=== PATIENT | female | born 1975 | race Caucasian/White ===

== ENCOUNTER 2018-02-24 05:35 | Inpatient (IN) | payer OTHER ==
[2018-02-23 11:08] LABS: BILIRUBIN,URINE NEGATIVE (NEGATIVE); BLOOD, URINE NEGATIVE (NEGATIVE); CLARITY/URINE CLEAR (CLEAR); COLOR,URINE YELLOW (YELLOW); GLUCOSE,URINE NEGATIVE (NEGATIVE); KETONES,URINE NEGATIVE (NEGATIVE); LEUKOCYTE ESTERASE ,URINE NEGATIVE (NEGATIVE); NITRITE, URINE NEGATIVE (NEGATIVE); PROTEIN URINE NEGATIVE (NEGATIVE); UROBILINOGEN,URINE 0.2 (0.2-1.0)
[2018-02-23 11:12] LABS: BASOPHILS % (AUTO) 0.3 % (0.0-2.0); EOSINOPHILS # (AUTO) 0.1 K/uL (0.0-0.4); HEMATOCRIT 40.5 % (36-48); HEMOGLOBIN 13.6 g/dL (12.0-16.0); LYMPHOCYTES # (AUTO) 1.8 K/uL (1.0-5.5); LYMPHOCYTES % (AUTO) 22.1 % (20.5-51.5); MEAN CORPUSCULAR HEMOGLOBIN 28 pg (27-31); MEAN CORPUSCULAR HGB CONC 34 % (32-36); MEAN CORPUSCULAR VOLUME 83 fL (79.0-98.0); MONOCYTES # (AUTO) 0.4 K/uL (0.0-1.0); MONOCYTES % (AUTO) 4.6 % (1.7-9.3); NEUTROPHILS # (AUTO) 5.9 K/uL (1.8-7.7); PLATELET COUNT (AUTO) 326 K/uL (130-430); RED CELL DISTRIBUTION WIDTH 12.5 % (9.0-15.0); WHITE BLOOD COUNT (AUTO) 8.3 K/uL (4.8-10.8)
[2018-02-23 11:30] LABS: ALBUMIN 3.4 g/dL (3.4-4.8); CALCIUM 8.7 mg/dL (8.4-11.0); CREATININE 0.62 mg/dL (0.55-1.30); POTASSIUM 4.1 mmol/L (3.5-5.1); TOTAL BILIRUBIN 0.4 mg/dL (0.0-1.0)
[~2018-02-24] VITALS: Ht 157.5 cm; Wt 66.2 kg
[2018-02-24] MEDS ORDERED: CEFAZOLIN 1 GM IVPB PREMIX 50 ML IV ONE ×2 (06:22→07:00)
[2018-02-24] MEDS ORDERED: ONDANSETRON HCL 4 MG/2 ML VIAL IVP PRN ×2 (08:15→10:45)
[2018-02-24] MEDS ORDERED: KETOROLAC TROMETHAMINE 30 MG VIAL IVP PRN (08:15)
[2018-02-24] MEDS ORDERED: fentaNYL CITRATE/PF 100 MCG/2 ML AMP IVP PRN ×2 (08:15)
[2018-02-24] MEDS ORDERED: GLYCOPYRROLATE 0.2 MG/ML VIAL IJ ONE (10:35)
[2018-02-24] MEDS ORDERED: NEOSTIGMINE METHYLSULFATE 1 MG/ML, 10 ML VIAL IVP ONE (10:35)
[2018-02-24] MEDS ORDERED: PROPOFOL 200MG/ 20ML VIAL (DIPRIVAN) IV ONE (10:35)
[2018-02-24] MEDS ORDERED: MIDAZOLAM HCL 5 MG/ML VIAL (VERSED) IV ONE (10:35)
[2018-02-24] MEDS ORDERED: KETOROLAC TROMETHAMINE 30 MG VIAL IVP ONE (10:35)
[2018-02-24] MEDS ORDERED: VASOPRESSIN 20 UNITS/ML VIAL IV ONE (10:35)
[2018-02-24] MEDS ORDERED: BUPIVACAINE /PF 0.25% 30 ML VIAL INJ ONE (10:35)
[2018-02-24] MEDS ORDERED: LR 1,000 ML IV.SOLN IV ONE (10:35)
[2018-02-24] MEDS ORDERED: LIDOCAINE 1% 10 MG/ML, 20 ML MDV INJ ONE (10:35)
[2018-02-24] MEDS ORDERED: NS 100 ML BAG IV ONE (10:35)
[2018-02-24] MEDS ORDERED: SEVOFLURANE 15 MIN GAS INH ONE (10:35)
[2018-02-24] MEDS ORDERED: ONDANSETRON HCL 4 MG/2 ML VIAL IVP ONE ×2 (10:35→11:20)
[2018-02-24] MEDS ORDERED: NS IRRIG SOLN 1000 ML IR ONE (10:35)
[2018-02-24] MEDS ORDERED: MEPERIDINE HCL/PF 50 MG/ML AMP IM ONE (10:35)
[2018-02-24] MEDS ORDERED: ROCURONIUM BROMIDE 10 MG/ML (ZEMURON) IV ONE (10:35)
[2018-02-24] MEDS ORDERED: BISACODYL 10 MG/SUPPOSITORY RC PRN (10:45)
[2018-02-24] MEDS ORDERED: DOCUSATE SODIUM 100 MG CAPSULE PO PRN (10:45)
[2018-02-24] MEDS ORDERED: SIMETHICONE 80 MG TAB.CHEW PO PRN (10:45)
[2018-02-24] MEDS ORDERED: SENNOSIDES/DOCUSATE SODIUM 1 TAB TABLET(SENOKOT-S) PO PRN (10:45)
[2018-02-24] MEDS ORDERED: ONDANSETRON HCL 4 MG/2 ML VIAL ONE (11:19)
[2018-02-24 12:08] VITALS: BP_SYST 125
[2018-02-24] MEDS: LR 1,000 ML IV SCH ×2 (12:25→17:48)
[2018-02-24] MEDS: MEPERIDINE HCL/PF 50 MG/ML AMP IVP PRN (13:32)
[2018-02-24 16:01] VITALS: BP_SYST 121
[2018-02-24] MEDS: KETOROLAC TROMETHAMINE 30 MG VIAL IVP SCH ×3 (16:27→23:26)
[2018-02-24 20:00] VITALS: BP_SYST 149
[2018-02-24] MEDS ORDERED: TEMAZEPAM 15 MG CAPSULE PO PRN (21:00)
[2018-02-24 23:40] VITALS: BP_SYST 136
[2018-02-25] MEDS: LR 1,000 ML IV SCH ×3 (02:35→17:35)
[2018-02-25] MEDS: MEPERIDINE HCL/PF 50 MG/ML AMP IVP PRN ×2 (04:01→04:19)
[2018-02-25 06:23] LABS: BASOPHILS % (AUTO) 0.2 % (0.0-2.0); EOSINOPHILS % (AUTO) 0.1 % (0.0-4.0); HEMOGLOBIN 11.9 g/dL (12.0-16.0); LYMPHOCYTES # (AUTO) 1.5 K/uL (1.0-5.5); LYMPHOCYTES % (AUTO) 10.7 % (20.5-51.5); MEAN CORPUSCULAR HEMOGLOBIN 28 pg (27-31); MEAN CORPUSCULAR HGB CONC 34 % (32-36); MEAN CORPUSCULAR VOLUME 83 fL (79.0-98.0); MONOCYTES # (AUTO) 0.9 K/uL (0.0-1.0); MONOCYTES % (AUTO) 6.8 % (1.7-9.3); NEUTROPHILS # (AUTO) 11.2 K/uL (1.8-7.7); NEUTROPHILS % (AUTO) 82.2 % (40.0-70.0); PLATELET COUNT (AUTO) 256 K/uL (130-430); RED BLOOD CELL COUNT(AUTO) 4.22 MIL/uL (4.2-6.2); RED CELL DISTRIBUTION WIDTH 12.8 % (9.0-15.0); WHITE BLOOD COUNT (AUTO) 13.6 K/uL (4.8-10.8)
[2018-02-25] MEDS: KETOROLAC TROMETHAMINE 30 MG VIAL IVP SCH (06:58)
[2018-02-25] MEDS: IBUPROFEN 600 MG TABLET PO SCH ×3 (07:00→17:38)
[2018-02-25 07:08] LABS: ALBUMIN 2.8 g/dL (3.4-4.8); CALCIUM 8.6 mg/dL (8.4-11.0); CREATININE 0.71 mg/dL (0.55-1.30); POTASSIUM 3.5 mmol/L (3.5-5.1); TOTAL BILIRUBIN 0.7 mg/dL (0.0-1.0)
[2018-02-25 08:00] VITALS: BP_SYST 117
[2018-02-25] MEDS: OXYCODONE/ACETAMINOPHEN 5-325 TABLET PO PRN ×2 (09:20→20:19)
[2018-02-25 12:02] VITALS: BP_SYST 136
[2018-02-25 18:19] VITALS: BP_SYST 119
[2018-02-25 20:00] VITALS: BP_SYST 109
[2018-02-26 00:44] VITALS: BP_SYST 92
[2018-02-26] MEDS: IBUPROFEN 600 MG TABLET PO SCH ×3 (05:31→11:03)
[2018-02-26 08:09] VITALS: BP_SYST 117
[2018-02-26 12:00] VITALS: BP_SYST 116
[2018-02-26 14:34] LABS: BASOPHILS % (AUTO) 0.4 % (0.0-2.0); EOSINOPHILS # (AUTO) 0.1 K/uL (0.0-0.4); EOSINOPHILS % (AUTO) 0.8 % (0.0-4.0); HEMOGLOBIN 11.6 g/dL (12.0-16.0); LYMPHOCYTES # (AUTO) 1.7 K/uL (1.0-5.5); LYMPHOCYTES % (AUTO) 14.1 % (20.5-51.5); MEAN CORPUSCULAR HEMOGLOBIN 28 pg (27-31); MEAN CORPUSCULAR HGB CONC 33 % (32-36); MEAN CORPUSCULAR VOLUME 83 fL (79.0-98.0); MONOCYTES # (AUTO) 0.6 K/uL (0.0-1.0); MONOCYTES % (AUTO) 5.3 % (1.7-9.3); NEUTROPHILS # (AUTO) 9.7 K/uL (1.8-7.7); NEUTROPHILS % (AUTO) 79.4 % (40.0-70.0); PLATELET COUNT (AUTO) 287 K/uL (130-430); WHITE BLOOD COUNT (AUTO) 12.1 K/uL (4.8-10.8)
[2018-02-26 14:43] VITALS: BP_SYST 116
[2018-02-26 14:54] LABS: ALBUMIN 2.9 g/dL (3.4-4.8); CALCIUM 8.9 mg/dL (8.4-11.0); CREATININE 0.82 mg/dL (0.55-1.30); POTASSIUM 3.2 mmol/L (3.5-5.1); TOTAL BILIRUBIN 0.7 mg/dL (0.0-1.0)
[2018-02-26 16:00] VITALS: BP_SYST 119
== END 2018-02-26 16:25 | disposition home or self-care (01) | DRG 743 ==
LOC: SMU 05:35
PROVIDERS: ADMIT Obstetrics & Gynecology; ATTEND Obstetrics & Gynecology
PROC: 0UTC0ZZ Resection of Cervix, Open Approach (ICD-10-PCS; 2018-02-24)
PROC: 0UT70ZZ Resection of Bilateral Fallopian Tubes, Open Approach (ICD-10-PCS; 2018-02-24)
PROC: 0UT90ZZ Resection of Uterus, Open Approach (ICD-10-PCS; principal; 2018-02-24 07:30)
DX: D25.9 Leiomyoma of uterus, unspecified (principal); Z80.0 Family history of malignant neoplasm of digestive organs
CPT/HCPCS: 36415; 80053; 81003; 84703; 85025; 86886; 86900; 86901; 87081; 88307; 88311; 94010; J0690; J1885; J2001; J2175; J2250; J2405; J2704; J2710; J3490; J7120